=== PATIENT | female | born 1955 | race African-American/Black ===

== ENCOUNTER 2017-06-19 05:54 | Emergency (ER) | payer MEDICARE ==
[~2017-06-19] VITALS: Ht 162.6 cm; Wt 72.0 kg
[2017-06-19 07:14] LABS: BASOPHILS % 0.3 % (0.0-2.0); EOSINOPHILS % 4.9 % (0.0-5.0); HEMATOCRIT. 33.9 % (36.0-48.0); HEMOGLOBIN. 11.2 g/dL (12.0-16.0); LYMPHOCYTES % 21.8 % (20.0-50.0); MEAN CORPUSCULAR VOLUME 94.2 fL (81.0-99.0); MEAN PLATELET VOLUME 7.1 fl (7.4-10.4); MONOCYTES % 9.2 % (2.0-8.0); NEUTROPHILS % 63.8 % (40.0-76.0); PLATELET 266 x1000/uL (130-400)
[2017-06-19 07:20] LABS: CHLORIDE 104 mEq/L (98-107)
[2017-06-19 07:30] LABS: CARBON DIOXIDE 22 mEq/L (21-32); TROPONIN I 0.02 ng/mL (0.00-0.04)
[2017-06-19 08:29] VITALS: BP 133/61
== END 2017-06-19 08:29 | disposition home or self-care (01) ==
LOC: ER 05:54
DX: I13.2 Hypertensive heart and chronic kidney disease with heart failure and with stage 5 chronic kidney disease, or end stage renal disease (principal); N18.6 End stage renal disease; I50.9 Heart failure, unspecified; E11.22 Type 2 diabetes mellitus with diabetic chronic kidney disease; Z99.2 Dependence on renal dialysis; D63.1 Anemia in chronic kidney disease; Z79.4 Long term (current) use of insulin; Z86.73 Personal history of transient ischemic attack (TIA), and cerebral infarction without residual deficits; F17.210 Nicotine dependence, cigarettes, uncomplicated; Z88.8 Allergy status to other drugs, medicaments and biological substances; Z91.048 Other nonmedicinal substance allergy status
CPT/HCPCS: 36415; 80053; 84484; 85025; 93005; 99285

== ENCOUNTER 2019-06-30 05:52 | Inpatient (IN) | payer MEDICARE ==
[~2019-06-30] VITALS: Ht 172.7 cm; Wt 73.3 kg
[2019-06-30] MEDS ORDERED: FUROSEMIDE 40MG/4ML VIAL IVP ONE (06:00)
[2019-06-30] MEDS ORDERED: ENALAPRIL 2.5MG/2ML VIAL 2ML IV ONE (06:00)
[2019-06-30 06:26] LABS: BASOPHILS % 2.5 % (0.0-2.0); EOSINOPHILS % 1.4 % (0.0-5.0); HEMATOCRIT. 38.3 % (36.0-48.0); HEMOGLOBIN. 12.4 g/dL (12.0-16.0); LYMPHOCYTES % 13.1 % (20.0-50.0); MEAN CORPUSCULAR HEMOGLOBIN 28.6 pg (28.0-32.0); MEAN CORPUSCULAR VOLUME 88.4 fL (81.0-99.0); MEAN PLATELET VOLUME 7.8 fl (7.4-10.4); PLATELET 278 x1000/uL (130-400); RED BLOOD CELL COUNT 4.34 mill/uL (4.2-5.4); RED CELL DISTRIBUTION WIDTH 18.6 % (11.6-14.6)
[2019-06-30 06:32] LABS: CHLORIDE 101 mEq/L (98-107)
[2019-06-30] MEDS ORDERED: LEVOFLOXACIN 750MG PREMIX 150 ML IV ONE (07:30)
[2019-06-30 07:42] LABS: BG BASE EXCESS -3.5 mmol/L (-2.0-2.0); BG BILEVEL POS AIRWAY PRESSURE 18/5; BG CARBOXYHEMOGLOBIN 2.4 % (0.5-1.5); BG DEOXYHEMOGLOBIN 2.1 % (0.0-5.0); BG FRACTION INSPIRED OXYGEN 60; BG HCO3 ACT 22.5 mmol/L (22.0-26.0); BG METHEMOGLOBIN 0.2 % (0.0-1.5); BG OXYGEN SATURATION 97.8 % (92.0-98.5); BG OXYHEMOGLOBIN 95.3 % (94.0-97.0); BG PCO2 44.1 mmHg (35.0-45.0); BG PH 7.325 (7.350-7.450); BG PO2 123.5 mmHg (75.0-100.0); BG SAMPLE SITE LEFT RADIAL; BG TOTAL HEMOGLOBIN 12.7 g/dL (12.0-18.0); BG VENT MODE MASK - BIPAP
[2019-06-30 09:30] VITALS: BP_SYST 203; BP_SYST 212; BP_DIAS 84; BP_DIAS 92
[2019-06-30 10:00] VITALS: BP 209/76
[2019-06-30] MEDS ORDERED: DOCUSATE SODIUM 100MG CAPSULE PO PRN (10:00)
[2019-06-30] MEDS ORDERED: IPRATROPIUM/ALBUTEROL 0.5-3(2.5)MG/3ML NEB INH PRN (10:00)
[2019-06-30] MEDS ORDERED: MINOXIDIL 2.5MG TABLET PO SCH (10:00)
[2019-06-30] MEDS ORDERED: MORPHINE SULFATE 2 MG/ML CPJ (NOT FOR IM USE) IV PRN (10:00)
[2019-06-30] MEDS ORDERED: CLONIDINE 0.1MG TABLET PO PRN (10:00)
[2019-06-30] MEDS ORDERED: GUAIFENESIN 200MG/10ML SUGAR FREE UDC PO PRN (10:00)
[2019-06-30] MEDS ORDERED: ACETAMINOPHEN 325MG TABLET PO PRN (10:00)
[2019-06-30] MEDS ORDERED: MAGNESIUM/ALUMINUM HYDROXIDE/SIMETHICONE 30ML UDC PO PRN (10:00)
[2019-06-30] MEDS ORDERED: DEXTROSE 50% WATER 50ML SYRINGE IV PRN (10:00)
[2019-06-30] MEDS ORDERED: LORAZEPAM 0.5MG TABLET PO PRN (10:00)
[2019-06-30] MEDS ORDERED: DIPHENHYDRAMINE 50MG/ML VIAL IV PRN (10:00)
[2019-06-30] MEDS ORDERED: AMLODIPINE 10MG TABLET PO SCH (10:00)
[2019-06-30] MEDS: LISINOPRIL 20MG TABLET PO SCH ×2 (10:27→20:45)
[2019-06-30] MEDS: ENOXAPARIN 40MG/0.4ML SYR SUBCUT SCH (10:28)
[2019-06-30] MEDS: METOPROLOL TARTRATE 25MG TABLET PO SCH ×2 (10:30→20:49)
[2019-06-30] MEDS: FAMOTIDINE 20MG TABLET PO SCH (10:39)
[2019-06-30] MEDS: ASPIRIN 325MG EC TABLET PO SCH (10:39)
[2019-06-30] MEDS: FOLIC ACID/VITAMIN B COMP W-C TABLET PO SCH (10:39)
[2019-06-30 12:00] VITALS: BP 200/66
[2019-06-30] MEDS: BLOOD SUGAR DIAGNOSTIC STRIP TEST SCH ×3 (12:26→21:00)
[2019-06-30] MEDS: INSULIN LISPRO 100 UNITS/ML SUBCUT SCH ×3 (13:00→21:00)
[2019-06-30] MEDS: SEVELAMER CARBONATE 800 MG TABLET PO SCH ×2 (13:00→18:00)
[2019-06-30] MEDS ORDERED: LIDOCAINE HCL/EPINEPHRINE 0.5%-EPI 1:200,000 50 ML VIAL INFIL ONE (14:15)
[2019-06-30] MEDS ORDERED: LIDOCAINE 1%/EPI 1:100,000 10 ML VIAL IJ ONE (14:30)
[2019-06-30] MEDS ORDERED: LISI40TA4 MT (14:55)
[2019-06-30] MEDS ORDERED: ISON100T4 MT (14:55)
[2019-06-30] MEDS ORDERED: HYDR-4134 MT (14:55)
[2019-06-30] MEDS ORDERED: LIDOCAINE 1%/EPI 1:100,000 10 ML VIAL IJ NR (15:15)
[2019-06-30 17:30] LABS: CREATINE KINASE MB FRACTION 3.5 ng/mL (0.5-3.6)
[2019-06-30 19:43] VITALS: BP 183/80
[2019-06-30] MEDS: TRAMADOL 50MG TABLET PO PRN (20:45)
[2019-06-30] MEDS: NIFEDIPINE XL 60MG TAB PO SCH (20:45)
[2019-06-30] MEDS ORDERED: GABA-531 PO (21:04)
[2019-06-30] MEDS: MINOXIDIL 10MG TABLET PO SCH (21:42)
[2019-06-30 21:43] VITALS: BP 164/56
[2019-06-30] MEDS: ZOLPIDEM TARTRATE 5MG TABLET PO PRN (21:46)
[2019-06-30 23:44] VITALS: BP 167/59
[2019-07-01] VITALS (14 sets, daily range): BP systolic 124–185; BP diastolic 50–73
[2019-07-01 00:48] LABS: CREATINE KINASE MB FRACTION 2.9 ng/mL (0.5-3.6)
[2019-07-01 06:35] LABS: PHOSPHORUS 4.8 mg/dL (2.5-4.9)
[2019-07-01 06:39] LABS: BASOPHILS % 2.5 % (0.0-2.0); EOSINOPHILS % 3.4 % (0.0-5.0); HEMATOCRIT. 34.1 % (36.0-48.0); LYMPHOCYTES % 12.1 % (20.0-50.0); MEAN CORPUSCULAR HEMOGLOBIN 28.5 pg (28.0-32.0); MEAN CORPUSCULAR VOLUME 87.8 fL (81.0-99.0); MEAN PLATELET VOLUME 8.1 fl (7.4-10.4); MONOCYTES % 8.4 % (2.0-8.0); NEUTROPHILS % 73.6 % (40.0-76.0); PLATELET 207 x1000/uL (130-400); RED BLOOD CELL COUNT 3.88 mill/uL (4.2-5.4); RED CELL DISTRIBUTION WIDTH 18.5 % (11.6-14.6)
[2019-07-01] MEDS: INSULIN LISPRO 100 UNITS/ML SUBCUT SCH ×4 (07:45→20:59)
[2019-07-01] MEDS: BLOOD SUGAR DIAGNOSTIC STRIP TEST SCH ×4 (07:45→20:59)
[2019-07-01] MEDS: METOPROLOL TARTRATE 25MG TABLET PO SCH ×2 (09:00→21:00)
[2019-07-01] MEDS: NIFEDIPINE XL 60MG TAB PO SCH ×2 (09:00→20:51)
[2019-07-01] MEDS: ONDANSETRON HCL 4MG/2ML INJ IV PRN ×2 (09:00→20:49)
[2019-07-01] MEDS: SEVELAMER CARBONATE 800 MG TABLET PO SCH ×3 (09:01→17:24)
[2019-07-01] MEDS: ENOXAPARIN 40MG/0.4ML SYR SUBCUT SCH (09:01)
[2019-07-01] MEDS: MINOXIDIL 10MG TABLET PO SCH ×2 (09:02→20:50)
[2019-07-01] MEDS: FOLIC ACID/VITAMIN B COMP W-C TABLET PO SCH (09:02)
[2019-07-01] MEDS: FAMOTIDINE 20MG TABLET PO SCH (09:02)
[2019-07-01] MEDS: LISINOPRIL 20MG TABLET PO SCH ×2 (09:03→20:50)
[2019-07-01] MEDS: ASPIRIN 325MG EC TABLET PO SCH (09:03)
[2019-07-01] MEDS: TRAMADOL 50MG TABLET PO PRN (12:06)
[2019-07-01] MEDS ORDERED: GABAPENTIN 300MG CAPSULE PO SCH (21:00)
[2019-07-01] MEDS ORDERED: MEDICATION NOT ON FORMULARY EA (Gabapentin 300 MG) PO SCH (21:00)
[2019-07-01] MEDS: ZOLPIDEM TARTRATE 5MG TABLET PO PRN (21:50)
[2019-07-02] VITALS (8 sets, daily range): BP systolic 134–169; BP diastolic 45–65
[2019-07-02] MEDS: ONDANSETRON HCL 4MG/2ML INJ IV PRN ×2 (04:12→08:47)
[2019-07-02 07:22] LABS: EOSINOPHILS % 3.7 % (0.0-5.0); HEMATOCRIT. 34.9 % (36.0-48.0); HEMOGLOBIN. 11.2 g/dL (12.0-16.0); LYMPHOCYTES % 15.2 % (20.0-50.0); MEAN CORPUSCULAR HEMOGLOBIN 28.2 pg (28.0-32.0); MEAN CORPUSCULAR VOLUME 87.8 fL (81.0-99.0); MEAN PLATELET VOLUME 8.3 fl (7.4-10.4); MONOCYTES % 12.5 % (2.0-8.0); NEUTROPHILS % 67.6 % (40.0-76.0); PLATELET 221 x1000/uL (130-400); RED BLOOD CELL COUNT 3.97 mill/uL (4.2-5.4); RED CELL DISTRIBUTION WIDTH 18.1 % (11.6-14.6)
[2019-07-02] MEDS: BLOOD SUGAR DIAGNOSTIC STRIP TEST SCH ×2 (07:30→12:30)
[2019-07-02 07:37] LABS: PHOSPHORUS 5.8 mg/dL (2.5-4.9)
[2019-07-02] MEDS: SEVELAMER CARBONATE 800 MG TABLET PO SCH ×2 (08:00→13:00)
[2019-07-02] MEDS: INSULIN LISPRO 100 UNITS/ML SUBCUT SCH ×2 (08:00→13:00)
[2019-07-02] MEDS: NIFEDIPINE XL 60MG TAB PO SCH (08:47)
[2019-07-02] MEDS: FOLIC ACID/VITAMIN B COMP W-C TABLET PO SCH (08:47)
[2019-07-02] MEDS: MINOXIDIL 10MG TABLET PO SCH (08:48)
[2019-07-02] MEDS: METOPROLOL TARTRATE 25MG TABLET PO SCH (08:50)
[2019-07-02] MEDS: FAMOTIDINE 20MG TABLET PO SCH (08:51)
[2019-07-02] MEDS: LISINOPRIL 20MG TABLET PO SCH (08:51)
[2019-07-02] MEDS: ASPIRIN 325MG EC TABLET PO SCH (09:00)
[2019-07-02] MEDS ORDERED: ENOXAPARIN 30MG/0.3ML SYR SUBCUT SCH (09:00)
[2019-07-02] MEDS ORDERED: SODIUM POLYSTYRENE SULFONATE 15 G/60 ML BOT PO NR (10:30)
== END 2019-07-02 13:15 | disposition left against medical advice (07) | DRG 291 ==
LOC: ER 05:52 → 5EST 07:50 → EDBEDREQTM 07:53 → EDBEDREQ 07:53 → ENRESERV 08:32 → SUPCPDRO 09:55
PROVIDERS: ADMIT Internal Medicine; ATTEND Internal Medicine
PROC: 5A09357 Assistance with Respiratory Ventilation, Less than 24 Consecutive Hours, Continuous Positive Airway Pressure (ICD-10-PCS; principal; 2019-06-30)
PROC: 5A1D70Z Performance of Urinary Filtration, Intermittent, Less than 6 Hours Per Day (ICD-10-PCS; 2019-06-30)
PROC: 5A1D70Z Performance of Urinary Filtration, Intermittent, Less than 6 Hours Per Day (ICD-10-PCS; 2019-07-02)
DX: I13.2 Hypertensive heart and chronic kidney disease with heart failure and with stage 5 chronic kidney disease, or end stage renal disease (principal); J96.01 Acute respiratory failure with hypoxia; N18.6 End stage renal disease; J18.9 Pneumonia, unspecified organism; I50.43 Acute on chronic combined systolic (congestive) and diastolic (congestive) heart failure; E44.0 Moderate protein-calorie malnutrition; I16.0 Hypertensive urgency; I48.91 Unspecified atrial fibrillation; I25.10 Atherosclerotic heart disease of native coronary artery without angina pectoris; E11.22 Type 2 diabetes mellitus with diabetic chronic kidney disease; Z53.21 Procedure and treatment not carried out due to patient leaving prior to being seen by health care provider; I95.9 Hypotension, unspecified; E11.51 Type 2 diabetes mellitus with diabetic peripheral angiopathy without gangrene; D64.9 Anemia, unspecified; E87.5 Hyperkalemia; Z82.49 Family history of ischemic heart disease and other diseases of the circulatory system; Z83.3 Family history of diabetes mellitus; Z86.73 Personal history of transient ischemic attack (TIA), and cerebral infarction without residual deficits; Z90.710 Acquired absence of both cervix and uterus; Z91.15 Patient's noncompliance with renal dialysis; Z99.2 Dependence on renal dialysis; Z79.899 Other long term (current) drug therapy; Z68.24 Body mass index [BMI] 24.0-24.9, adult; Z91.040 Latex allergy status
CPT/HCPCS: 36415; 36600; 71045; 80048; 80061; 82375; 82550; 82553; 82805; 82962; 83036; 83735; 83880; 84100; 84484; 93005; 93306; 93970; 94660; 96372; 96374; 96375; 97166; 99291; J1650; J1940; J1956; J2270; J2405; J3490